=== PATIENT | male | born 1940 | race Caucasian/White ===

== ENCOUNTER 2018-01-13 10:24 | Inpatient (IN) ==
[2018-01-13] MEDS ORDERED: ALBUTEROL/IPRATROPIUM 3 ML NEB RESP TX PRN (10:32)
[2018-01-13] MEDS ORDERED: BENZONATATE 100 MG CAPSULE PO PRN (10:42)
[2018-01-13] MEDS: ALBUTEROL/IPRATROPIUM 3 ML NEB RESP TX SCH ×3 (11:10→19:40)
[2018-01-13] MEDS: methylPREDNISolone SOD SUC 40 MG/1 ML VIAL IV SCH ×2 (13:55→22:40)
[2018-01-13] MEDS: DEXTROSE 5% NACL 0.45% 1,000 ML IV SCH (13:58)
[2018-01-13] MEDS: MEROPENEM 500 MG in SODIUM CHLORIDE 0.9% 100 ML IV SCH ×2 (13:59→22:46)
[2018-01-13] MEDS ORDERED: NITROGLYCERIN SL 0.4 MG TABLET SL PRN (14:24)
[2018-01-13] MEDS ORDERED: MECLIZINE 25 MG TABLET PO PRN (14:24)
[2018-01-13] MEDS: CLINDAMYCIN INJ 300 MG in PREMIX 1 EACH IV SCH (16:06)
[2018-01-13] MEDS: MIDODRINE 5 MG TABLET PO SCH ×2 (16:07→22:46)
[2018-01-13] MEDS: GABAPENTIN 300 MG CAPSULE PO SCH (22:33)
[2018-01-13] MEDS: MONTELUKAST 10 MG TABLET PO SCH (22:34)
[2018-01-13] MEDS: ROSUVASTATIN 10 MG TABLET PO SCH (22:35)
[2018-01-13] MEDS: traZODone 50 MG TABLET PO SCH (22:37)
[2018-01-13] MEDS: ASPIRIN EC 81 MG TABLET PO SCH (22:37)
[2018-01-13] MEDS: CARVEDILOL 3.125 MG TABLET PO SCH (22:37)
[2018-01-13] MEDS: TAMSULOSIN 0.4 MG CAPSULE PO SCH (22:37)
[2018-01-13] MEDS: FAMOTIDINE 20 MG TABLET PO SCH (22:39)
[2018-01-13] MEDS ORDERED: POLYETHYLENE GLYCOL POWDER 17 GM PACK PO SCH (23:30)
[2018-01-14] MEDS: CLINDAMYCIN INJ 300 MG in PREMIX 1 EACH IV SCH ×3 (01:30→16:05)
[2018-01-14] MEDS: MEROPENEM 500 MG in SODIUM CHLORIDE 0.9% 100 ML IV SCH ×3 (04:15→18:25)
[2018-01-14 05:44] LABS: Basophils % 0.1 % (0.0-0.8); Hematocrit 38.1 VOL% (42.0-52.0); Hemoglobin 12.6 GM/DL (14.0-18.0); Immature Granulocytes % 0.8 %; Immature Granulocytes Absolute 0.09 #; Lymphocytes # 0.7 10*3/uL (1.4-4.0); Lymphocytes % 5.9 % (21.2-54.2); Mean Corpuscular HGB Conc 33.1 GM/DL (32-36); Mean Corpuscular Hemoglobin 31 PG (27-34); Mean Corpuscular Volume 94.3 FL (87-102); Monocytes # 0.2 10*3/uL (0.11-0.8); Monocytes % 1.8 % (1.7-12.7); Neutrophils # 10.7 10*3/uL (1.4-7.4); Neutrophils % 91.4 % (38.7-73.9); Platelet Count 118 T/CUMM (130-400); Red Blood Count 4.04 MC/CUMM (3.8-5.5); Red Cell Distribution Width 13.7 % (9.3-17.3); White Blood Count 11.7 T/CUMM (4-12)
[2018-01-14 06:17] LABS: Band Neutrophils 2 % (0-10); Hypochromasia 1+; Lymphocytes 8 % (20-55); Platelet Estimate Decreased; Segmented Neutrophils 89 % (50-85); Total Cells Counted 100
[2018-01-14 06:23] LABS: Calcium 8.8 MG/DL (8.5-10.1); Osmolality,Calculated 285.7 MOS/KG (273-304); Potassium 4.7 MMOL/L (3.5-5.1)
[2018-01-14] MEDS ORDERED: LEVOTHYROXINE 25 MCG TABLET PO SCH (06:30)
[2018-01-14] MEDS: ALBUTEROL/IPRATROPIUM 3 ML NEB RESP TX SCH ×4 (07:00→20:39)
[2018-01-14] MEDS ORDERED: NON-FORMULARY MEDICATION (Fluticasone/Vilanterol [Breo Ellipta 100-25 Mcg Inh] 1 PUFF) INH SCH (09:00)
[2018-01-14] MEDS ORDERED: GLUCAGON 1 MG VIAL IM PRN (09:32)
[2018-01-14] MEDS ORDERED: DEXTROSE 50% 25 GM/50 ML VIAL IV PRN (09:32)
[2018-01-14] MEDS: SERTRALINE 100 MG TABLET PO SCH (09:43)
[2018-01-14] MEDS: CLOPIDOGREL 75 MG TABLET PO SCH (09:44)
[2018-01-14] MEDS: CARVEDILOL 3.125 MG TABLET PO SCH ×2 (09:44→21:37)
[2018-01-14] MEDS: GABAPENTIN 300 MG CAPSULE PO SCH ×2 (09:44→21:35)
[2018-01-14] MEDS: MONTELUKAST 10 MG TABLET PO SCH ×2 (09:45→21:36)
[2018-01-14] MEDS: FINASTERIDE 5 MG TABLET PO SCH (09:45)
[2018-01-14] MEDS: FAMOTIDINE 20 MG TABLET PO SCH ×2 (09:45→21:36)
[2018-01-14] MEDS: PANTOPRAZOLE 40 MG TABLET PO SCH (09:45)
[2018-01-14] MEDS: MIDODRINE 5 MG TABLET PO SCH ×4 (09:45→21:36)
[2018-01-14] MEDS: methylPREDNISolone SOD SUC 40 MG/1 ML VIAL IV SCH ×2 (10:54→22:11)
[2018-01-14 11:43] LABS: Apearance,Urine CLEAR (Clear); Bilirubin,Urine Negative (Negative); Blood, Urine Negative (Negative); Glucose,Urine (UA) 50 mg/dL (Negative); Ketones,Urine Negative (Negative); Nitrite,Urine Negative (Negative); Protein,Urine Negative; RBC,Urine <1 /HPF (0-4); Urine Color Yellow (Yellow); Urine Specific Gravity 1.014 (1.001-1.035); Urine Urobilinogen < 2.0 EU/DL (0.2-1.0); WBC,Urine <1 /HPF (0-6)
[2018-01-14] MEDS: DORNASE ALFA 2.5 MG/2.5 ML VIAL RESP TX SCH ×2 (11:55→20:39)
[2018-01-14] MEDS: INSULIN REGULAR 100 UNIT/ML SUBCUT SCH ×3 (12:29→21:39)
[2018-01-14] MEDS: FLUDROCORTISONE 0.1 MG TABLET PO SCH (16:12)
[2018-01-14] MEDS: DEXTROSE 5% NACL 0.45% 1,000 ML IV SCH (20:14)
[2018-01-14] MEDS ORDERED: POLYETHYLENE GLYCOL POWDER 17 GM PACK PO SCH (21:00)
[2018-01-14] MEDS: ASPIRIN EC 81 MG TABLET PO SCH (21:36)
[2018-01-14] MEDS: ROSUVASTATIN 10 MG TABLET PO SCH (21:36)
[2018-01-14] MEDS: TAMSULOSIN 0.4 MG CAPSULE PO SCH (21:36)
[2018-01-14] MEDS: traZODone 50 MG TABLET PO SCH (21:38)
[2018-01-15] MEDS: CLINDAMYCIN INJ 300 MG in PREMIX 1 EACH IV SCH ×2 (00:19→08:52)
[2018-01-15] MEDS: DEXTROSE 5% NACL 0.45% 1,000 ML IV SCH ×2 (02:07→02:25)
[2018-01-15] MEDS: MEROPENEM 500 MG in SODIUM CHLORIDE 0.9% 100 ML IV SCH ×2 (02:18→10:43)
[2018-01-15 05:14] LABS: Basophils % 0.1 % (0.0-0.8); Hematocrit 37.5 VOL% (42.0-52.0); Hemoglobin 12.7 GM/DL (14.0-18.0); Immature Granulocytes % 0.8 %; Immature Granulocytes Absolute 0.13 #; Lymphocytes # 0.7 10*3/uL (1.4-4.0); Lymphocytes % 4.4 % (21.2-54.2); Mean Corpuscular HGB Conc 33.9 GM/DL (32-36); Mean Corpuscular Hemoglobin 31 PG (27-34); Mean Corpuscular Volume 91.9 FL (87-102); Mean Platelet Volume 10.2 FL (9.6-12.0); Monocytes # 0.4 10*3/uL (0.11-0.8); Monocytes % 2.8 % (1.7-12.7); Neutrophils # 14.3 10*3/uL (1.4-7.4); Neutrophils % 91.9 % (38.7-73.9); Platelet Count 122 T/CUMM (130-400); Red Blood Count 4.08 MC/CUMM (3.8-5.5); Red Cell Distribution Width 13.9 % (9.3-17.3); White Blood Count 15.6 T/CUMM (4-12)
[2018-01-15 05:37] LABS: Band Neutrophils 1 % (0-10); Hypochromasia 1+; Lymphocytes 4 % (20-55); Ovalocytes Slight; Platelet Estimate Decreased; Segmented Neutrophils 95 % (50-85); Total Cells Counted 100
[2018-01-15 05:45] LABS: Calcium 8.5 MG/DL (8.5-10.1); Osmolality,Calculated 291.3 MOS/KG (273-304); Potassium 4.2 MMOL/L (3.5-5.1)
[2018-01-15] MEDS ORDERED: LEVOTHYROXINE 75 MCG TABLET PO SCH (06:30)
[2018-01-15] MEDS: ALBUTEROL/IPRATROPIUM 3 ML NEB RESP TX SCH ×2 (07:45→11:07)
[2018-01-15] MEDS: DORNASE ALFA 2.5 MG/2.5 ML VIAL RESP TX SCH (07:50)
[2018-01-15] MEDS: INSULIN REGULAR 100 UNIT/ML SUBCUT SCH ×2 (08:19→12:27)
[2018-01-15] MEDS: MIDODRINE 5 MG TABLET PO SCH ×2 (08:20→14:14)
[2018-01-15] MEDS: SERTRALINE 100 MG TABLET PO SCH (08:20)
[2018-01-15] MEDS: PANTOPRAZOLE 40 MG TABLET PO SCH (08:20)
[2018-01-15] MEDS: CARVEDILOL 3.125 MG TABLET PO SCH (08:20)
[2018-01-15] MEDS: FLUDROCORTISONE 0.1 MG TABLET PO SCH (08:20)
[2018-01-15] MEDS: GABAPENTIN 300 MG CAPSULE PO SCH (08:20)
[2018-01-15] MEDS: FAMOTIDINE 20 MG TABLET PO SCH (08:20)
[2018-01-15] MEDS: MONTELUKAST 10 MG TABLET PO SCH (08:20)
[2018-01-15] MEDS: CLOPIDOGREL 75 MG TABLET PO SCH (08:20)
[2018-01-15] MEDS: FINASTERIDE 5 MG TABLET PO SCH (08:20)
[2018-01-15] MEDS: methylPREDNISolone SOD SUC 40 MG/1 ML VIAL IV SCH (10:38)
[2018-01-15 12:22] VITALS: BP 120/63
== END 2018-01-15 13:57 | disposition home health service (06) | DRG 194 ==
LOC: N.TELEN 10:32
PROVIDERS: ADMIT Internal Medicine Pulmonary Disease; ATTEND Internal Medicine Pulmonary Disease

== ENCOUNTER 2018-08-19 16:59 | Observation (INO) ==
[2018-08-19] MEDS ORDERED: ALUM/MAG/SIMETH/LIDO VISC 1:1 30 ML BOTTLE PO STA (17:46)
[2018-08-19] MEDS ORDERED: NITROGLYCERIN 2% OINT 1 INCH/GM PACK TOP STA (17:46)
[2018-08-19] MEDS ORDERED: ONDANSETRON 4 MG/2 ML VIAL IV STA (17:46)
[2018-08-19] MEDS ORDERED: ASPIRIN 325 MG TABLET PO STA (17:46)
[2018-08-19 17:52] LABS: Basophils # 0.1 10*3/uL (0.0-0.2); Basophils % 1.1 % (0.0-0.8); Eosinophils # 0.6 10*3/uL (0.0-0.87); Eosinophils % 10.2 % (0.00-10.9); Hematocrit 39.9 VOL% (42.0-52.0); Hemoglobin 12.9 GM/DL (14.0-18.0); Immature Granulocytes % 0.4 %; Immature Granulocytes Absolute 0.02 #; Lymphocytes # 1.6 10*3/uL (1.4-4.0); Lymphocytes % 28.5 % (21.2-54.2); Mean Corpuscular HGB Conc 32.3 GM/DL (32-36); Mean Corpuscular Volume 96.6 FL (87-102); Mean Platelet Volume 10.4 FL (9.6-12.0); Monocytes % 12.4 % (1.7-12.7); Neutrophils % 47.4 % (38.7-73.9); Platelet Count 128 T/CUMM (130-400); Red Blood Count 4.13 MC/CUMM (3.8-5.5); Red Cell Distribution Width 14.1 % (9.3-17.3); White Blood Count 5.6 T/CUMM (4-12)
[2018-08-19 18:01] LABS: PT Patient Result 10.5 SECS
[2018-08-19] MEDS ORDERED: ALBUTEROL/IPRATROPIUM 3 ML NEB RESP TX STA (18:05)
[2018-08-19] MEDS ORDERED: methylPREDNISolone SOD SUC 125 MG/2 ML VIAL IV STA (18:05)
[2018-08-19 18:06] LABS: Albumin 4.2 G/DL (3.4-5.0); Bilirubin,Total 0.4 MG/DL (0.2-1.0); Calcium 8.5 MG/DL (8.5-10.1); Osmolality,Calculated 296.1 MOS/KG (273-304); Total Protein 7.7 G/DL (6.4-8.3)
[2018-08-19] MEDS ORDERED: ONDANSETRON 4 MG/2 ML VIAL IV PRN (21:22)
[2018-08-19] MEDS ORDERED: ALBUTEROL/IPRATROPIUM 3 ML NEB RESP TX PRN (21:22)
[2018-08-19] MEDS ORDERED: ASPIRIN EC 81 MG TABLET PO SCH (21:22)
[2018-08-19] MEDS ORDERED: LACTULOSE 20 GM/30 ML UDCUP PO PRN (21:22)
[2018-08-19] MEDS ORDERED: NITROGLYCERIN SL 0.4 MG TABLET SL PRN (21:22)
[2018-08-19] MEDS ORDERED: traZODone 50 MG TABLET PO PRN (21:22)
[2018-08-19] MEDS ORDERED: ACETAMINOPHEN 325 MG TABLET PO PRN (21:22)
[2018-08-19] MEDS ORDERED: ENOXAPARIN 40 MG/0.4 ML SYRINGE SUBCUT SCH (21:30)
[2018-08-19 22:14] LABS: Troponin I < 0.015 NG/ML (0.00-0.045)
[2018-08-19] MEDS: GABAPENTIN 300 MG CAPSULE PO SCH (23:00)
[2018-08-19] MEDS: MIDODRINE 5 MG TABLET PO SCH (23:00)
[2018-08-19] MEDS: CARVEDILOL 3.125 MG TABLET PO SCH (23:01)
[2018-08-19] MEDS: FAMOTIDINE 20 MG TABLET PO SCH (23:01)
[2018-08-19] MEDS: SODIUM CHLORIDE 0.9% 1,000 ML IV SCH (23:01)
[2018-08-19] MEDS: ALBUTEROL 2 MG TABLET PO SCH (23:22)
[2018-08-20 05:46] LABS: Basophils % 0.4 % (0.0-0.8); Eosinophils % 0.6 % (0.00-10.9); Hematocrit 39.3 VOL% (42.0-52.0); Hemoglobin 12.5 GM/DL (14.0-18.0); Immature Granulocytes % 0.6 %; Immature Granulocytes Absolute 0.03 #; Lymphocytes # 0.6 10*3/uL (1.4-4.0); Lymphocytes % 12.9 % (21.2-54.2); Mean Corpuscular HGB Conc 31.8 GM/DL (32-36); Mean Platelet Volume 10.8 FL (9.6-12.0); Monocytes % 1.1 % (1.7-12.7); Neutrophils % 84.4 % (38.7-73.9); Platelet Count 124 T/CUMM (130-400); Red Blood Count 4.01 MC/CUMM (3.8-5.5); Red Cell Distribution Width 14.4 % (9.3-17.3); White Blood Count 4.7 T/CUMM (4-12)
[2018-08-20 06:09] LABS: Albumin 3.9 G/DL (3.4-5.0); Bilirubin,Total 0.4 MG/DL (0.2-1.0); Calcium 8.5 MG/DL (8.5-10.1); Osmolality,Calculated 295.4 MOS/KG (273-304); Risk Ratio 5.08; Total Protein 7.6 G/DL (6.4-8.3); VLDL CHOLESTEROL 34.8 MG/DL
[2018-08-20 06:17] LABS: Hypochromasia 1+; Platelet Estimate Normal
[2018-08-20] MEDS ORDERED: ROSUVASTATIN 10 MG TABLET PO SCH (09:00)
[2018-08-20] MEDS ORDERED: CLOPIDOGREL 75 MG TABLET PO SCH (09:00)
[2018-08-20] MEDS ORDERED: TAMSULOSIN 0.4 MG CAPSULE PO SCH (09:00)
[2018-08-20] MEDS ORDERED: SERTRALINE 100 MG TABLET PO SCH (09:00)
[2018-08-20] MEDS ORDERED: MONTELUKAST 10 MG TABLET PO SCH ×2 (09:00→21:00)
[2018-08-20] MEDS ORDERED: FINASTERIDE 5 MG TABLET PO SCH (09:00)
[2018-08-20 09:16] LABS: Apearance,Urine CLEAR (Clear); Bilirubin,Urine Negative (Negative); Blood, Urine Negative (Negative); Glucose,Urine (UA) Negative (Negative); Ketones,Urine Negative (Negative); Nitrite,Urine Negative (Negative); Protein,Urine Negative; RBC,Urine 1 /HPF (0-4); Urine Color Yellow (Yellow); Urine Urobilinogen < 2.0 EU/DL (0.2-1.0); WBC,Urine <1 /HPF (0-6)
[2018-08-20] MEDS: MIDODRINE 5 MG TABLET PO SCH ×3 (10:33→15:59)
[2018-08-20] MEDS: GABAPENTIN 300 MG CAPSULE PO SCH (10:34)
[2018-08-20] MEDS: FAMOTIDINE 20 MG TABLET PO SCH (10:34)
[2018-08-20] MEDS: CARVEDILOL 3.125 MG TABLET PO SCH ×2 (10:35→15:59)
[2018-08-20] MEDS: ALBUTEROL 2 MG TABLET PO SCH ×2 (10:43→15:59)
[2018-08-20] MEDS: SODIUM CHLORIDE 0.9% 1,000 ML IV SCH (11:58)
[2018-08-20] MEDS ORDERED: GABAPENTIN 600 MG TABLET PO SCH (12:00)
[2018-08-20] MEDS ORDERED: predniSONE 20 MG TABLET PO SCH (12:30)
[2018-08-20 15:57] VITALS: BP 111/59
[2018-08-20] MEDS ORDERED: ROSUVASTATIN 20 MG TABLET PO SCH (21:00)
== END 2018-08-20 18:45 | disposition home or self-care (01) ==
LOC: EDBD → EDUNIT# → N.ED 16:59 → N.EDINP 20:04 → INTOOBSV 20:04 → N.TELEN 20:32
PROVIDERS: ADMIT Internal Medicine; ATTEND Internal Medicine

== ENCOUNTER 2021-12-22 19:10 | Inpatient (IN) ==
[2021-12-22 20:02] LABS: Basophils % 0.1 % (0.0-0.8); Eosinophils # 0.1 10*3/uL (0.0-0.87); Eosinophils % 1.1 % (0.00-10.9); Hematocrit 39.7 VOL% (42.0-52.0); Hemoglobin 13.3 GM/DL (14.0-18.0); Immature Granulocytes % 0.7 %; Immature Granulocytes Absolute 0.05 #; Lymphocytes # 1.2 10*3/uL (1.4-4.0); Lymphocytes % 16.4 % (21.2-54.2); Mean Corpuscular HGB Conc 33.5 GM/DL (32-36); Mean Corpuscular Volume 91.9 FL (87-102); Mean Platelet Volume 10.1 FL (9.6-12.0); Monocytes # 0.4 10*3/uL (0.11-0.8); Monocytes % 4.9 % (1.7-12.7); Neutrophils % 76.8 % (38.7-73.9); Platelet Count 113 T/CUMM (130-400); Red Blood Count 4.32 MC/CUMM (3.8-5.5); Red Cell Distribution Width 14.6 % (9.3-17.3); White Blood Count 7.4 T/CUMM (4-12)
[2021-12-22 20:23] LABS: Alanine Aminotransferase 31 U/L (16-61); Albumin 3.2 G/DL (3.4-5.0); Alkaline Phosphatase 54 U/L (45-117); Aspartate Amino Transferase 37 U/L (0-37); Blood Urea Nitrogen 33 MG/DL (7-18); Calcium 8.8 MG/DL (8.5-10.1); Carbon Dioxide 31 MMOL/L (21-32); Chloride 105 MMOL/L (98-107); Glucose 118 MG/DL (74-106); Osmolality,Calculated 288.3 MOS/KG (273-304); Potassium 2.9 MMOL/L (3.5-5.1); Sodium 141 MMOL/L (136-145); Total Protein 7.8 G/DL (6.4-8.2)
[2021-12-22] MEDS ORDERED: methylPREDNISolone SOD SUC 125 MG/2 ML VIAL IV STA (20:58)
[2021-12-22] MEDS ORDERED: ALBUTEROL/IPRATROPIUM 3 ML NEB RESP TX STA (20:58)
[2021-12-22] MEDS ORDERED: POTASSIUM CHLORIDE 20 MEQ TABLET PO STA (21:06)
[2021-12-22 21:16] LABS: Mucus,Urine Occasional /LPF (Occasional); RBC,Urine 1 /HPF (0-4)
[2021-12-22 21:17] LABS: Arterial Base Excess iSTAT 4 MMOL/L (-2.5-2.5); Arterial Bicarbonate iSTAT 28.3 MMOL/L (20-26); Arterial O2 Saturation iSTAT 89 % (95-100); Arterial PCO2 iSTAT 40 MM HG (35-48); Arterial PO2 iSTAT 53 MM HG (80-95); Arterial Total CO2 iSTAT 29 MMO/L (23-27); Arterial pH iSTAT 7.463 (7.35-7.45)
[2021-12-22 21:17] LABS: Bilirubin,Urine Negative (Negative); Glucose,Urine (UA) Negative (Negative); Ketones,Urine Negative (Negative); Nitrite,Urine Negative (Negative); Protein,Urine 30 mg/dL (Negative); Urine Appearance Clear (Clear); Urine Color Yellow (Yellow); Urine Specific Gravity 1.025 (1.001-1.035)
[2021-12-22 21:18] LABS: Blood, Urine Trace mg/dL (Negative); Urine Urobilinogen 0.2 eU/dL (<2.0)
[2021-12-22] MEDS ORDERED: SODIUM CHLORIDE 0.9% 1,000 ML IV SCH (22:00)
[2021-12-22] MEDS ORDERED: ACETAMINOPHEN 325 MG TABLET PO PRN (22:17)
[2021-12-22] MEDS ORDERED: ONDANSETRON 4 MG/2 ML VIAL IV PRN (22:17)
[2021-12-22] MEDS ORDERED: GLUCAGON 1 MG VIAL IM PRN (22:17)
[2021-12-22] MEDS ORDERED: DEXTROSE 10% 250 ML BAG IV PRN (22:36)
[2021-12-23] MEDS ORDERED: MECLIZINE 25 MG TABLET PO PRN (00:27)
[2021-12-23] MEDS ORDERED: NITROGLYCERIN SL 0.4 MG TABLET SL PRN (00:27)
[2021-12-23] MEDS: ALBUTEROL/IPRATROPIUM 3 ML NEB RESP TX SCH ×3 (00:57→13:00)
[2021-12-23 04:34] LABS: Hematocrit 34.5 VOL% (42.0-52.0); Hemoglobin 11.4 GM/DL (14.0-18.0); Immature Granulocytes % 0.8 %; Immature Granulocytes Absolute 0.04 #; Lymphocytes # 0.3 10*3/uL (1.4-4.0); Lymphocytes % 6.8 % (21.2-54.2); Mean Corpuscular Volume 94.3 FL (87-102); Mean Platelet Volume 10.5 FL (9.6-12.0); Monocytes # 0.1 10*3/uL (0.11-0.8); Monocytes % 1.6 % (1.7-12.7); Neutrophils % 90.8 % (38.7-73.9); Platelet Count 98 T/CUMM (130-400); Red Blood Count 3.66 MC/CUMM (3.8-5.5); Red Cell Distribution Width 14.6 % (9.3-17.3)
[2021-12-23 05:02] LABS: Platelet Estimate Decreased
[2021-12-23 05:06] LABS: Albumin 2.8 G/DL (3.4-5.0); Bilirubin,Total 0.6 MG/DL (0.20-1.00); Calcium 8.2 MG/DL (8.5-10.1); Potassium 3.8 MMOL/L (3.5-5.1); Risk Ratio 2.91; Thyroid Stimulating Hormone 0.603 uIU/ml (0.358-3.74)
[2021-12-23] MEDS ORDERED: AZITHROMYCIN INJ 500 MG in SODIUM CHLORIDE 0.9% 250 ML IV ONE (07:11)
[2021-12-23] MEDS ORDERED: MELATONIN 3 MG TABLET PO PRN (07:11)
[2021-12-23] MEDS ORDERED: POLYETHYLENE GLYCOL POWDER 17 GM PACK PO SCH (07:30)
[2021-12-23 07:45] LABS: Ferritin 178.4 ng/mL (26-388)
[2021-12-23] MEDS: INSULIN LISPRO 100 UNIT/ML SUBCUT SCH ×4 (07:47→22:19)
[2021-12-23] MEDS: methylPREDNISolone SOD SUC 40 MG/1 ML VIAL IV SCH ×2 (08:11→16:18)
[2021-12-23] MEDS ORDERED: PANTOPRAZOLE 40 MG TABLET PO SCH (09:00)
[2021-12-23] MEDS: SERTRALINE 100 MG TABLET PO SCH (09:25)
[2021-12-23] MEDS: CETIRIZINE 10 MG TABLET PO SCH (09:25)
[2021-12-23] MEDS: FAMOTIDINE 20 MG TABLET PO SCH ×2 (09:26→22:18)
[2021-12-23] MEDS: ZINC GLUCONATE 50 MG TABLET PO SCH (09:26)
[2021-12-23] MEDS: CHOLECALCIFEROL 1,000 UNIT TABLET PO SCH (09:26)
[2021-12-23] MEDS: ASCORBIC ACID 500 MG TABLET PO SCH ×2 (09:26→22:17)
[2021-12-23] MEDS: LEVOTHYROXINE 88 MCG TABLET PO SCH (09:26)
[2021-12-23] MEDS: GABAPENTIN 300 MG CAPSULE PO SCH ×3 (09:27→22:18)
[2021-12-23] MEDS: ENOXAPARIN 40 MG/0.4 ML SYRINGE SUBCUT SCH (09:27)
[2021-12-23] MEDS: MIDODRINE 5 MG TABLET PO SCH ×3 (09:40→22:54)
[2021-12-23] MEDS: TAMSULOSIN 0.4 MG CAPSULE PO SCH (09:40)
[2021-12-23] MEDS: FINASTERIDE 5 MG TABLET PO SCH (10:15)
[2021-12-23] MEDS: LEVOFLOXACIN INJ 750 MG/150 ML PREMIX IV SCH (11:27)
[2021-12-23] MEDS: LACTATED RINGERS 1,000 ML IV SCH (11:27)
[2021-12-23] MEDS: ISOSORBIDE MONONITRATE 20 MG TABLET PO SCH ×2 (11:28→22:18)
[2021-12-23] MEDS: FLUDROCORTISONE 0.1 MG TABLET PO SCH ×2 (11:28→22:19)
[2021-12-23] MEDS: MIRABEGRON 25 MG PO SCH (13:28)
[2021-12-23] MEDS: traZODone 50 MG TABLET PO SCH (22:18)
[2021-12-23] MEDS: ROSUVASTATIN 20 MG TABLET PO SCH (22:18)
[2021-12-23] MEDS: ASPIRIN EC 81 MG TABLET PO SCH (22:18)
[2021-12-23] MEDS: MONTELUKAST 10 MG TABLET PO SCH (22:19)
[2021-12-24] MEDS: ALBUTEROL/IPRATROPIUM 3 ML NEB RESP TX SCH ×5 (00:07→20:00)
[2021-12-24] MEDS: methylPREDNISolone SOD SUC 40 MG/1 ML VIAL IV SCH ×4 (01:08→23:33)
[2021-12-24 05:46] LABS: Basophils % 0.2 % (0.0-0.8); Hemoglobin 10.6 GM/DL (14.0-18.0); Immature Granulocytes % 0.7 %; Immature Granulocytes Absolute 0.04 #; Lymphocytes # 0.3 10*3/uL (1.4-4.0); Lymphocytes % 5.4 % (21.2-54.2); Mean Corpuscular HGB Conc 33.1 GM/DL (32-36); Mean Platelet Volume 10.5 FL (9.6-12.0); Monocytes # 0.2 10*3/uL (0.11-0.8); Monocytes % 3.9 % (1.7-12.7); Neutrophils % 89.8 % (38.7-73.9); Platelet Count 104 T/CUMM (130-400); Red Blood Count 3.44 MC/CUMM (3.8-5.5); Red Cell Distribution Width 14.4 % (9.3-17.3)
[2021-12-24] MEDS: LACTATED RINGERS 1,000 ML IV SCH ×2 (06:00→20:45)
[2021-12-24] MEDS: LEVOTHYROXINE 88 MCG TABLET PO SCH (06:00)
[2021-12-24 06:09] LABS: Calcium 8.9 MG/DL (8.5-10.1); Ferritin 181.6 ng/mL (26-388); Potassium 3.3 MMOL/L (3.5-5.1)
[2021-12-24] MEDS ORDERED: AZITHROMYCIN 250 MG TABLET PO SCH (09:00)
[2021-12-24] MEDS: LEVOFLOXACIN INJ 750 MG/150 ML PREMIX IV SCH (09:14)
[2021-12-24] MEDS: POLYETHYLENE GLYCOL POWDER 17 GM PACK PO SCH (09:16)
[2021-12-24] MEDS: ENOXAPARIN 40 MG/0.4 ML SYRINGE SUBCUT SCH (09:16)
[2021-12-24] MEDS: FINASTERIDE 5 MG TABLET PO SCH (09:16)
[2021-12-24] MEDS: ISOSORBIDE MONONITRATE 20 MG TABLET PO SCH ×2 (09:17→20:45)
[2021-12-24] MEDS: TAMSULOSIN 0.4 MG CAPSULE PO SCH (09:18)
[2021-12-24] MEDS: CHOLECALCIFEROL 1,000 UNIT TABLET PO SCH (09:18)
[2021-12-24] MEDS: SERTRALINE 100 MG TABLET PO SCH (09:18)
[2021-12-24] MEDS: FLUDROCORTISONE 0.1 MG TABLET PO SCH ×2 (09:18→20:45)
[2021-12-24] MEDS: CETIRIZINE 10 MG TABLET PO SCH (09:19)
[2021-12-24] MEDS: ASCORBIC ACID 500 MG TABLET PO SCH ×2 (09:19→20:44)
[2021-12-24] MEDS: MIRABEGRON 25 MG PO SCH (09:20)
[2021-12-24] MEDS: INSULIN LISPRO 100 UNIT/ML SUBCUT SCH ×4 (09:20→20:45)
[2021-12-24] MEDS: GABAPENTIN 300 MG CAPSULE PO SCH ×3 (09:20→20:45)
[2021-12-24] MEDS: ZINC GLUCONATE 50 MG TABLET PO SCH (09:20)
[2021-12-24] MEDS: FAMOTIDINE 20 MG TABLET PO SCH ×2 (09:20→20:44)
[2021-12-24] MEDS: MIDODRINE 5 MG TABLET PO SCH ×3 (10:08→20:46)
[2021-12-24] MEDS: NON-FORMULARY MEDICATION (Fluticasone-Umeclidin-Vilanter [Trelegy Ellipta] 200-62.5-25 mcg INH SCH (13:24)
[2021-12-24] MEDS ORDERED: REMDESIVIR 200 MG in SODIUM CHLORIDE 0.9% 210 ML IV ONE (15:00)
[2021-12-24] MEDS: traZODone 50 MG TABLET PO SCH (20:44)
[2021-12-24] MEDS: ROSUVASTATIN 20 MG TABLET PO SCH (20:44)
[2021-12-24] MEDS: ASPIRIN EC 81 MG TABLET PO SCH (20:45)
[2021-12-24] MEDS: MONTELUKAST 10 MG TABLET PO SCH (20:45)
[2021-12-25] MEDS: ALBUTEROL/IPRATROPIUM 3 ML NEB RESP TX SCH ×4 (00:40→19:30)
[2021-12-25] MEDS: LEVOTHYROXINE 88 MCG TABLET PO SCH (06:16)
[2021-12-25] MEDS: LACTATED RINGERS 1,000 ML IV SCH (09:22)
[2021-12-25] MEDS: SERTRALINE 100 MG TABLET PO SCH (09:23)
[2021-12-25] MEDS: GABAPENTIN 300 MG CAPSULE PO SCH ×3 (09:23→20:50)
[2021-12-25] MEDS: FLUDROCORTISONE 0.1 MG TABLET PO SCH ×2 (09:23→20:49)
[2021-12-25] MEDS: ISOSORBIDE MONONITRATE 20 MG TABLET PO SCH ×2 (09:23→20:49)
[2021-12-25] MEDS: methylPREDNISolone SOD SUC 40 MG/1 ML VIAL IV SCH ×3 (09:23→23:22)
[2021-12-25] MEDS: CETIRIZINE 10 MG TABLET PO SCH (09:24)
[2021-12-25] MEDS: ZINC GLUCONATE 50 MG TABLET PO SCH (09:24)
[2021-12-25] MEDS: MIDODRINE 5 MG TABLET PO SCH ×3 (09:24→20:51)
[2021-12-25] MEDS: CHOLECALCIFEROL 1,000 UNIT TABLET PO SCH (09:24)
[2021-12-25] MEDS: FINASTERIDE 5 MG TABLET PO SCH (09:24)
[2021-12-25] MEDS: ASCORBIC ACID 500 MG TABLET PO SCH ×2 (09:24→20:50)
[2021-12-25] MEDS: FAMOTIDINE 20 MG TABLET PO SCH ×2 (09:24→20:49)
[2021-12-25] MEDS: ENOXAPARIN 40 MG/0.4 ML SYRINGE SUBCUT SCH (09:25)
[2021-12-25] MEDS: REMDESIVIR 100 MG in SODIUM CHLORIDE 0.9% 100 ML IV SCH (09:25)
[2021-12-25] MEDS: TAMSULOSIN 0.4 MG CAPSULE PO SCH (09:26)
[2021-12-25] MEDS: INSULIN LISPRO 100 UNIT/ML SUBCUT SCH ×4 (09:27→20:50)
[2021-12-25] MEDS: MIRABEGRON 25 MG PO SCH (09:27)
[2021-12-25] MEDS: NON-FORMULARY MEDICATION (Fluticasone-Umeclidin-Vilanter [Trelegy Ellipta] 200-62.5-25 mcg INH SCH (09:28)
[2021-12-25] MEDS: POLYETHYLENE GLYCOL POWDER 17 GM PACK PO SCH (09:28)
[2021-12-25 09:34] LABS: Basophils % 0.1 % (0.0-0.8); Hematocrit 34.2 VOL% (42.0-52.0); Hemoglobin 11.2 GM/DL (14.0-18.0); Immature Granulocytes % 1.2 %; Immature Granulocytes Absolute 0.12 #; Lymphocytes # 0.4 10*3/uL (1.4-4.0); Lymphocytes % 3.4 % (21.2-54.2); Mean Corpuscular HGB Conc 32.7 GM/DL (32-36); Mean Corpuscular Volume 92.9 FL (87-102); Mean Platelet Volume 9.9 FL (9.6-12.0); Monocytes # 0.4 10*3/uL (0.11-0.8); Monocytes % 4.2 % (1.7-12.7); Neutrophils % 91.1 % (38.7-73.9); Platelet Count 124 T/CUMM (130-400); Red Blood Count 3.68 MC/CUMM (3.8-5.5); Red Cell Distribution Width 14.7 % (9.3-17.3); White Blood Count 10.2 T/CUMM (4-12)
[2021-12-25] MEDS: SPIRONOLACTONE 25 MG TABLET PO SCH (09:44)
[2021-12-25 09:51] LABS: Albumin 2.9 G/DL (3.4-5.0); Bilirubin,Total 0.4 MG/DL (0.20-1.00); Osmolality,Calculated 295.7 MOS/KG (273-304); Potassium 3.5 MMOL/L (3.5-5.1); Total Protein 6.7 G/DL (6.4-8.2)
[2021-12-25 10:06] LABS: Lymphocytes 3 % (20-55); Platelet Estimate Normal; Total Cells Counted 100
[2021-12-25] MEDS: LEVOFLOXACIN INJ 750 MG/150 ML PREMIX IV SCH (10:40)
[2021-12-25] MEDS: traZODone 50 MG TABLET PO SCH (20:50)
[2021-12-25] MEDS: ASPIRIN EC 81 MG TABLET PO SCH (20:50)
[2021-12-25] MEDS: MONTELUKAST 10 MG TABLET PO SCH (20:50)
[2021-12-25] MEDS: ROSUVASTATIN 20 MG TABLET PO SCH (20:50)
[2021-12-26] MEDS: LACTATED RINGERS 1,000 ML IV SCH ×2 (00:04→15:40)
[2021-12-26] MEDS: ALBUTEROL/IPRATROPIUM 3 ML NEB RESP TX SCH ×4 (00:45→19:22)
[2021-12-26] MEDS: LEVOTHYROXINE 88 MCG TABLET PO SCH (06:02)
[2021-12-26 06:38] LABS: Basophils % 0.1 % (0.0-0.8); Hematocrit 35.5 VOL% (42.0-52.0); Hemoglobin 11.8 GM/DL (14.0-18.0); Immature Granulocytes % 1.4 %; Immature Granulocytes Absolute 0.11 #; Lymphocytes # 0.3 10*3/uL (1.4-4.0); Lymphocytes % 4.4 % (21.2-54.2); Mean Corpuscular HGB Conc 33.2 GM/DL (32-36); Mean Corpuscular Volume 92.4 FL (87-102); Mean Platelet Volume 10.3 FL (9.6-12.0); Monocytes # 0.3 10*3/uL (0.11-0.8); Neutrophils % 90.1 % (38.7-73.9); Platelet Count 139 T/CUMM (130-400); Red Blood Count 3.84 MC/CUMM (3.8-5.5); Red Cell Distribution Width 14.7 % (9.3-17.3); White Blood Count 7.8 T/CUMM (4-12)
[2021-12-26 07:02] LABS: Albumin 3.1 G/DL (3.4-5.0); Bilirubin,Total 0.4 MG/DL (0.20-1.00); Calcium 8.7 MG/DL (8.5-10.1); Osmolality,Calculated 294.8 MOS/KG (273-304); Potassium 3.8 MMOL/L (3.5-5.1); Total Protein 7.3 G/DL (6.4-8.2)
[2021-12-26 07:05] LABS: Lymphocytes 4 % (20-55); Platelet Estimate Normal; Total Cells Counted 100
[2021-12-26] MEDS: SERTRALINE 100 MG TABLET PO SCH (08:47)
[2021-12-26] MEDS: MIDODRINE 5 MG TABLET PO SCH ×3 (08:47→20:56)
[2021-12-26] MEDS: ASCORBIC ACID 500 MG TABLET PO SCH ×2 (08:47→20:54)
[2021-12-26] MEDS: GABAPENTIN 300 MG CAPSULE PO SCH ×3 (08:47→20:55)
[2021-12-26] MEDS: CETIRIZINE 10 MG TABLET PO SCH (08:47)
[2021-12-26] MEDS: methylPREDNISolone SOD SUC 40 MG/1 ML VIAL IV SCH ×2 (08:48→15:42)
[2021-12-26] MEDS: ZINC GLUCONATE 50 MG TABLET PO SCH (08:48)
[2021-12-26] MEDS: TAMSULOSIN 0.4 MG CAPSULE PO SCH (08:48)
[2021-12-26] MEDS: FLUDROCORTISONE 0.1 MG TABLET PO SCH ×2 (08:48→20:55)
[2021-12-26] MEDS: SPIRONOLACTONE 25 MG TABLET PO SCH (08:48)
[2021-12-26] MEDS: CHOLECALCIFEROL 1,000 UNIT TABLET PO SCH (08:48)
[2021-12-26] MEDS: REMDESIVIR 100 MG in SODIUM CHLORIDE 0.9% 100 ML IV SCH (08:49)
[2021-12-26] MEDS: ENOXAPARIN 40 MG/0.4 ML SYRINGE SUBCUT SCH (08:49)
[2021-12-26] MEDS: NON-FORMULARY MEDICATION (Fluticasone-Umeclidin-Vilanter [Trelegy Ellipta] 200-62.5-25 mcg INH SCH (08:50)
[2021-12-26] MEDS: FAMOTIDINE 20 MG TABLET PO SCH ×2 (08:50→20:56)
[2021-12-26] MEDS: POLYETHYLENE GLYCOL POWDER 17 GM PACK PO SCH (08:50)
[2021-12-26] MEDS: FINASTERIDE 5 MG TABLET PO SCH (08:51)
[2021-12-26] MEDS: MIRABEGRON 25 MG PO SCH (08:51)
[2021-12-26] MEDS: ISOSORBIDE MONONITRATE 20 MG TABLET PO SCH ×2 (08:52→20:55)
[2021-12-26] MEDS: INSULIN LISPRO 100 UNIT/ML SUBCUT SCH ×4 (08:52→20:53)
[2021-12-26] MEDS ORDERED: LEVOFLOXACIN INJ 500 MG/100 ML PREMIX IV ONE (10:00)
[2021-12-26] MEDS: MONTELUKAST 10 MG TABLET PO SCH (20:55)
[2021-12-26] MEDS: ROSUVASTATIN 20 MG TABLET PO SCH (20:55)
[2021-12-26] MEDS: ASPIRIN EC 81 MG TABLET PO SCH (20:55)
[2021-12-26] MEDS: traZODone 50 MG TABLET PO SCH (20:55)
[2021-12-27] MEDS: methylPREDNISolone SOD SUC 40 MG/1 ML VIAL IV SCH ×4 (00:30→23:42)
[2021-12-27] MEDS: ALBUTEROL/IPRATROPIUM 3 ML NEB RESP TX SCH ×4 (00:30→19:33)
[2021-12-27] MEDS: LACTATED RINGERS 1,000 ML IV SCH ×5 (05:06→21:05)
[2021-12-27 05:11] LABS: Basophils % 0.1 % (0.0-0.8); Hematocrit 35.8 VOL% (42.0-52.0); Immature Granulocytes % 1.7 %; Immature Granulocytes Absolute 0.17 #; Lymphocytes # 0.5 10*3/uL (1.4-4.0); Lymphocytes % 4.7 % (21.2-54.2); Mean Corpuscular HGB Conc 33.5 GM/DL (32-36); Mean Corpuscular Volume 91.3 FL (87-102); Mean Platelet Volume 9.9 FL (9.6-12.0); Monocytes # 0.3 10*3/uL (0.11-0.8); Monocytes % 3.2 % (1.7-12.7); Neutrophils % 90.3 % (38.7-73.9); Platelet Count 165 T/CUMM (130-400); Red Blood Count 3.92 MC/CUMM (3.8-5.5); Red Cell Distribution Width 14.5 % (9.3-17.3); White Blood Count 10.2 T/CUMM (4-12)
[2021-12-27] MEDS: LEVOTHYROXINE 88 MCG TABLET PO SCH (05:18)
[2021-12-27 05:35] LABS: Lymphocytes 7 % (20-55); Platelet Estimate Adequate; Total Cells Counted 100
[2021-12-27 05:37] LABS: Bilirubin,Total 0.5 MG/DL (0.20-1.00); Calcium 8.6 MG/DL (8.5-10.1); Osmolality,Calculated 292.3 MOS/KG (273-304); Potassium 2.9 MMOL/L (3.5-5.1); Total Protein 6.8 G/DL (6.4-8.2)
[2021-12-27] MEDS: INSULIN LISPRO 100 UNIT/ML SUBCUT SCH ×4 (08:23→21:05)
[2021-12-27] MEDS ORDERED: POTASSIUM CHLORIDE 20 MEQ TABLET PO ONE (09:36)
[2021-12-27] MEDS: ZINC GLUCONATE 50 MG TABLET PO SCH (10:31)
[2021-12-27] MEDS: ENOXAPARIN 40 MG/0.4 ML SYRINGE SUBCUT SCH (10:31)
[2021-12-27] MEDS: FLUDROCORTISONE 0.1 MG TABLET PO SCH ×2 (10:32→21:04)
[2021-12-27] MEDS: ISOSORBIDE MONONITRATE 20 MG TABLET PO SCH ×2 (10:32→21:04)
[2021-12-27] MEDS: FAMOTIDINE 20 MG TABLET PO SCH ×2 (10:33→21:05)
[2021-12-27] MEDS: ASCORBIC ACID 500 MG TABLET PO SCH ×2 (10:34→21:04)
[2021-12-27] MEDS: CHOLECALCIFEROL 1,000 UNIT TABLET PO SCH (10:35)
[2021-12-27] MEDS: GABAPENTIN 300 MG CAPSULE PO SCH ×3 (10:35→21:04)
[2021-12-27] MEDS: SERTRALINE 100 MG TABLET PO SCH (10:35)
[2021-12-27] MEDS: MIDODRINE 5 MG TABLET PO SCH ×3 (10:36→21:05)
[2021-12-27] MEDS: SPIRONOLACTONE 25 MG TABLET PO SCH (10:36)
[2021-12-27] MEDS: TAMSULOSIN 0.4 MG CAPSULE PO SCH (10:36)
[2021-12-27] MEDS: LEVOFLOXACIN INJ 250 MG/50 ML PREMIX IV SCH (10:37)
[2021-12-27] MEDS: CETIRIZINE 10 MG TABLET PO SCH (10:37)
[2021-12-27] MEDS: POLYETHYLENE GLYCOL POWDER 17 GM PACK PO SCH (10:37)
[2021-12-27] MEDS: NON-FORMULARY MEDICATION (Fluticasone-Umeclidin-Vilanter [Trelegy Ellipta] 200-62.5-25 mcg INH SCH (10:38)
[2021-12-27] MEDS: MIRABEGRON 25 MG PO SCH (10:38)
[2021-12-27] MEDS: FINASTERIDE 5 MG TABLET PO SCH (11:29)
[2021-12-27] MEDS: MONTELUKAST 10 MG TABLET PO SCH (21:04)
[2021-12-27] MEDS: ASPIRIN EC 81 MG TABLET PO SCH (21:04)
[2021-12-27] MEDS: traZODone 50 MG TABLET PO SCH (21:04)
[2021-12-27] MEDS: ROSUVASTATIN 20 MG TABLET PO SCH (21:04)
[2021-12-28] MEDS: ALBUTEROL/IPRATROPIUM 3 ML NEB RESP TX SCH ×2 (00:03→07:32)
[2021-12-28 05:43] LABS: Basophils % 0.2 % (0.0-0.8); Hematocrit 34.3 VOL% (42.0-52.0); Hemoglobin 11.3 GM/DL (14.0-18.0); Immature Granulocytes % 1.7 %; Immature Granulocytes Absolute 0.11 #; Lymphocytes # 0.3 10*3/uL (1.4-4.0); Lymphocytes % 4.8 % (21.2-54.2); Mean Corpuscular HGB Conc 32.9 GM/DL (32-36); Mean Corpuscular Volume 93.7 FL (87-102); Mean Platelet Volume 9.9 FL (9.6-12.0); Monocytes # 0.3 10*3/uL (0.11-0.8); Neutrophils % 89.3 % (38.7-73.9); Platelet Count 129 T/CUMM (130-400); Red Blood Count 3.66 MC/CUMM (3.8-5.5); Red Cell Distribution Width 14.5 % (9.3-17.3); White Blood Count 6.4 T/CUMM (4-12)
[2021-12-28] MEDS: LEVOTHYROXINE 88 MCG TABLET PO SCH (06:00)
[2021-12-28 06:05] LABS: Albumin 2.7 G/DL (3.4-5.0); Bilirubin,Total 0.5 MG/DL (0.20-1.00); Calcium 8.6 MG/DL (8.5-10.1); Osmolality,Calculated 293.1 MOS/KG (273-304); Potassium 3.3 MMOL/L (3.5-5.1); Total Protein 6.5 G/DL (6.4-8.2)
[2021-12-28 06:07] LABS: Lymphocytes 4 % (20-55); Platelet Estimate Normal; Total Cells Counted 100
[2021-12-28] MEDS ORDERED: POTASSIUM CHLORIDE 20 MEQ TABLET PO ONE (10:07)
[2021-12-28] MEDS: POLYETHYLENE GLYCOL POWDER 17 GM PACK PO SCH (10:20)
[2021-12-28] MEDS: ASCORBIC ACID 500 MG TABLET PO SCH (10:20)
[2021-12-28] MEDS: FINASTERIDE 5 MG TABLET PO SCH (10:20)
[2021-12-28] MEDS: SERTRALINE 100 MG TABLET PO SCH (10:20)
[2021-12-28] MEDS: CHOLECALCIFEROL 1,000 UNIT TABLET PO SCH (10:20)
[2021-12-28] MEDS: SPIRONOLACTONE 25 MG TABLET PO SCH (10:20)
[2021-12-28] MEDS: methylPREDNISolone SOD SUC 40 MG/1 ML VIAL IV SCH (10:21)
[2021-12-28] MEDS: GABAPENTIN 300 MG CAPSULE PO SCH (10:21)
[2021-12-28] MEDS: FAMOTIDINE 20 MG TABLET PO SCH (10:21)
[2021-12-28] MEDS: ENOXAPARIN 40 MG/0.4 ML SYRINGE SUBCUT SCH (10:21)
[2021-12-28] MEDS: ISOSORBIDE MONONITRATE 20 MG TABLET PO SCH (10:21)
[2021-12-28] MEDS: TAMSULOSIN 0.4 MG CAPSULE PO SCH (10:21)
[2021-12-28] MEDS: INSULIN LISPRO 100 UNIT/ML SUBCUT SCH ×2 (10:22→13:00)
[2021-12-28] MEDS: LEVOFLOXACIN INJ 250 MG/50 ML PREMIX IV SCH (10:22)
[2021-12-28] MEDS: MIRABEGRON 25 MG PO SCH (10:25)
[2021-12-28] MEDS: ZINC GLUCONATE 50 MG TABLET PO SCH (10:26)
[2021-12-28] MEDS: CETIRIZINE 10 MG TABLET PO SCH (10:27)
[2021-12-28] MEDS: NON-FORMULARY MEDICATION (Fluticasone-Umeclidin-Vilanter [Trelegy Ellipta] 200-62.5-25 mcg INH SCH (10:27)
[2021-12-28] MEDS: LACTATED RINGERS 1,000 ML IV SCH (10:28)
[2021-12-28 12:41] VITALS: BP 150/65
[2021-12-28] MEDS: MIDODRINE 5 MG TABLET PO SCH (13:00)
[2021-12-28] MEDS: FLUDROCORTISONE 0.1 MG TABLET PO SCH (13:00)
== END 2021-12-28 13:55 | disposition home or self-care (01) | DRG 178 ==
LOC: N.ED 19:10 → SUATTDRO 22:17 → N.EDINP 22:17 → N.TELEN 12-23 12:19
PROVIDERS: ADMIT Family Medicine; ATTEND Internal Medicine Geriatric Medicine